=== PATIENT | female | born 1950 | race African-American/Black ===

== ENCOUNTER → 2017-12-04 | Outpatient (CLI) | payer OTHER, BC ==
[~2017-12-04] VITALS: Ht 167.6 cm; Wt 103.0 kg
[~2017-12-04] MED LIST: AMLODIPINE BESY10 MG PO; ANACIN 400-321 EACH PO; CALCIUM CITRAT1 EA14; CENTRUM TABLET1 EACH PO; FUROSEMIDE 20 M20 M1 PO; HYDROCODON-ACE1 EACH PO; HYDROCODONE-AP1 EAC6 PO; MAXZIDE 75-501 EACH PO; NABUMETONE 750750 M1 PO; NAPROSYN500 MG PO; POTASSIUM20; REMIFEMIN PO; VITAMIN D31000 UNIT
--- NOTE | ~2017-12-04 | HPC ---
[facility] [place] [address] PAIN MANAGEMENT CONSULTATION Name: PARAMJIT RODRIGUEZ Room #: REG ZACK Camille#: [id number] Admission: 12/04/17 Attend Phys: Arcenio Pickard DO Discharge: Date of : 54 Report #: [id number] THIS REPORT FOR: //name// CC: Camille Morris Arcenio Pickard DATE OF SERVICE: 12/04/2017 HISTORY OF PRESENT ILLNESS: The patient is a pleasant 67-year-old female typically treated for DJD, bilateral hips and left knee, has chronic pain syndrome. Last seen in the pain clinic on 10/01/2017. Did a steroid injection in her left knee and continued on Naprosyn 5 mg b.i.d. She did very well following this injection. Unfortunately, she tripped and fell striking her left knee on 11/06. She has had significant swelling and pain in the left knee since. PHYSICAL EXAMINATION: GENERAL: Today shows a pleasant 67-year-old female, BMI is elevated at 36.7 kilograms per meter squared. Subjective pain score is 8 on a VAS. VITAL SIGNS: Blood pressure shows modest hypertension 159/94, pulse 98, respirations 18. NEUROLOGIC: Alert and oriented to person, place and time, judged to be a reasonable historian. MUSCULOSKELETAL: Subjective pain score is 8, primarily in the left knee. Physical exam shows some osseous hypertrophy and, I believe, I can detect some subtle ballottable edema. RECOMMENDATIONS: After discussion with the patient today, we have elected to do an arthrocentesis under fluoroscopy and do one more steroid injection. If there is a bloody fluid noted, I will refer to Orthopedics. If clear, we will simply get x-rays of the knee. ASSESSMENT: Symptomatic degenerative joint disease, left knee, acute exacerbation following a fall. PROCEDURE: Left knee arthrocentesis under fluoroscopy. PROCEDURE NOTE: After written and informed consent was obtained, the patient was taken to fluoroscopy suite, placed in prone position. After sterile prep and drape, skin wheal was raised. A 22-gauge stylet needle was placed from a superomedial aspect into an inferolateral trajectory. I was able to get into the knee, but unable to aspirate significant volume perhaps 3 mL of a bloody injectate. We elected to abort and trial from a lateral superior approach. Again using fluoroscopy, we were easily able to get into the joint. Again, only a few milliliters of a blood-tinged clear aspirate was removed. A 40 mg of triamcinolone plus 2 mL of 0.5% preservative-free bupivacaine was injected into [address] [id number] PAIN MANAGEMENT CONSULTATION Name: PARAMJIT RODRIGUEZ Room #: REG ZACK Obrien#: [id number] Admission: 12/04/17 Attend Phys: Arcneio Pickard DO Discharge: Date of : 54 Report #: [id number] the knee. Needle was removed. The area was cleansed. Band-Aids applied. The patient was told to watch the area for infection, use ice today and follow up with her orthopedist for a likely arthrocentesis versus total knee arthroplasty. Even on the x-rays from the fluoroscopy, it appears that there is a significant loss of lateral joint height. Discharged in good and stable condition, I did renew prescription for hydrocodone 5/325, dispense 60 tablets, no refill, 1 tablet q.4-6 hours as needed for pain. Cautioned about daytime somnolence, mental acuity changes, constipation. <ELECTRONICALLY SIGNED> By: Arcenio Pickard DO 12/07/17 0816 [id number] Arcenio Pickard DO /nt
[2017-12-04 13:44] VITALS: BP 159/94
== END | disposition home or self-care (01) ==
LOC: PAIN 10-26 08:50
DX: M17.12 Unilateral primary osteoarthritis, left knee (principal); Z68.36 Body mass index [BMI] 36.0-36.9, adult